=== PATIENT | female | born 1970 | race Caucasian/White ===

== ENCOUNTER → 2016-10-16 | Day surgery (SDC) | payer BC ==
[~2016-10-16] MED LIST: ACETAMINOPHEN 1000 MG/100 ML VIAL IV ONE; BUPIVACAINE HCL PF 0.5% 30 ML VIAL ONE; BUPIVACAINE/EPINEPHRINE 0.5% PF 30 ML VIAL ONE; HYDR-3533 PO; IBUP800T23 PO; KETOROLAC TROMETHAMINE 30 MG/ML (IVP) VIAL IV PUSH ONE; LACTATED RINGER'S 1,000 ML BAG IV ONE; LACTATED RINGER'S 1000 ML INJ 1,000 ML ONE; MIDAZOLAM HCL 2 MG/2 ML VIAL ONE; ONDANSETRON HCL 4 MG/2 ML VIAL IV PUSH ONE; PROPOFOL 200 MG/20 ML AMP IV ONE; ceFAZolin 2 GM PREMIX 50 ML ONE
--- NOTE | 2016-10-16 22:26 | MP ---
cc: ZULEYKA RAE DATE OF SURGERY 10/16/16 PREOPERATIVE DIAGNOSIS Chronic cholecystitis, cholelithiasis. POSTOPERATIVE DIAGNOSIS Chronic cholecystitis, cholelithiasis. PROCEDURE Laparoscopic cholecystectomy. SURGEON Stephane Rae MD ANESTHESIA General endotracheal OPERATIVE FINDINGS The patient was found to have a thick-walled, chronically diseased appearing gallbladder, which was quite edematous as well. The cystic duct was slightly thickened and the common bile duct appeared to be of normal caliber. No other abnormalities were noted. OPERATIVE PROCEDURE The patient was brought to the operating room and, after satisfactory general endotracheal anesthesia obtained, the abdomen was prepped and draped in the usual sterile fashion. 0.5% Marcaine with epinephrine was used to infiltrate the skin for local anesthesia. A small incision made just above the umbilicus and a 5 mm trocar was then inserted into the peritoneal cavity under direct visualization. The abdomen was then distended to 15 mmHg using carbon dioxide after which the camera was reinserted and visceral injury inspected for with none being identified. Under direct visualization, a 12 port and a 5 port were placed in the upper abdomen. The gallbladder was grasped and retracted superiorly over the right lobe of the liver. Adhesions were taken down bluntly with the harmonic scalpel being used for hemostasis. The dissection was then carried around Jacob's pouch and critical view obtained by blunt dissection. Once the cystic duct, cystic artery had been isolated by blunt dissection, the cystic artery was divided with the gallbladder using a harmonic scalpel. The cystic duct was then clipped and divided with the harmonic scalpel as well. The gallbladder was dissected free from the liver bed using the harmonic. It was placed within an EndoCatch bag and brought through the upper midline incision without problem. It was passed for permanent pathology. The liver bed was inspected and found to be hemostatic. The cystic duct, cystic artery stumps were both seen to be intact with no leakage of bile or blood. The carbon dioxide was vented as completely as possibly into the atmosphere after which the ports were removed and the 12 mL fascial defect was closed with a single interrupted 0 Vicryl suture. Skin was closed with interrupted 5-0 PDS subcuticular stitch. Steri-Strips were applied and the patient was then awakened and taken from the operating room, in satisfactory condition, having tolerated procedure without a problem. Estimated blood loss was less than five mL. The instrument, sponge and needle counts were reported as being correct x2 at the end of the procedure. MD CASSIE Trotter/ /10:04 AM /10:17 PM
== END | disposition home or self-care (01) ==
LOC: ESDC 06:55
PROVIDERS: ATTEND Surgery
DX: K80.10 Calculus of gallbladder with chronic cholecystitis without obstruction (principal)
CPT/HCPCS: 00790; 47562; 88304; J0131; J0690; J1885; J2250; J2405; J3010; J7120